=== PATIENT | female | born 1980 | race Caucasian/White ===

== ENCOUNTER → 2021-01-03 | Outpatient (CLI) | payer BC, OTHER ==
[~2021-01-03] MED LIST: LEXAPRO 10 MG T10 M2 PO; LOPRESSOR50 PO; NEXIUM20 MG PO; NORTRIPTYLINE H25 M3 PO; NURTEC ODT75 MG PO; SINGULAIR 10 MG10 M1 PO; SUMATRIPTAN SU100 MG PO
[2021-01-03 14:10] LABS: URINE BILIRUBIN NEGATIVE (Negative); URINE BLOOD TRACE (Negative); URINE CLARITY CLEAR; URINE COLOR YELLOW; URINE GLUCOSE-RANDOM* NEGATIVE (Negative); URINE KETONES NEGATIVE (Negative); URINE LEUKOCYTES-REFLEX NEGATIVE (Negative); URINE NITRITE-REFLEX NEGATIVE (Negative); URINE PROTEIN (DIPSTICK) NEGATIVE (Negative); URINE UROBILINOGEN 0.2 E.U./dl (0.2-1.0)
[2021-01-03 14:11] LABS: HEMATOCRIT 40.6 % (37.0-47.0); HEMOGLOBIN 13.9 gm/dL (12.0-15.0); MCHC 34.2 g/dL (28.0-37.0); MCV 87.7 fL (80.0-100.0); RBC 4.63 mil/uL (4.20-5.00); RDW 12.7 % (10.5-14.5); WBC 6.4 thou/uL (4.0-11.0)
[2021-01-03 14:21] LABS: CALCIUM 8.8 mg/dL (8.5-10.1); CREATININE 0.7 mg/dL (0.6-1.0)
[2021-01-03 14:24] LABS: INR 0.94; PROTIME 10.3 Seconds (10.5-12.1)
== END ==
LOC: PAC 12:51
PROVIDERS: ATTEND Orthopaedic Surgery
DX: Z01.812 Encounter for preprocedural laboratory examination (principal); M17.11 Unilateral primary osteoarthritis, right knee

== ENCOUNTER 2021-01-09 06:13 | Observation (INO) | payer BC, OTHER ==
[~2021-01-09] VITALS: Ht 162.6 cm; Wt 104.8 kg
[2021-01-09 07:06] VITALS: BP 103/70
--- NOTE | 2021-01-09 14:48 | NUR ---
ASSESSMENT: CM REVIEWED CHART AND MET WITH PATIENT AT THE [facility]. PT IS ALERT AND ORIENTED X4. PT LIVES IN A HOUSE WITH HER FAMILY. PT REPORTS SHE HAS ABOUT 2 STEPS WITH HANDRAILS TO ENTER THE HOME THROUGH THE GARAGE AND NO MORE STEPS SHE HAS TO USE ONCE INSIDE. PT REPORTS SHE HAS A CANE AND A WALKER AT HOME TO USE IF NEEDED. PT IS S/P RIGHT TKA. PT REPORTS SHE HAS OUTPATIENT THERAPY ARRANGED AT [facility] IN [place], [place] TO BEGIN ON SATURDAY. CM DISCUSSED ROLE. PT DOES NOT ANTICIPATE HAVING ANY NEEDS FROM CM. CM WILL CONTINUE TO FOLLOW TO ASSIST NEEDED.
[2021-01-09 18:12] VITALS: BP 106/68
--- NOTE | 2021-01-09 18:27 | NUR ---
ASSUMED CARE OF PT BROUGHT UP FROM PACU WITH RIGHT TOTAL KNEE REPLACEMENT.PT IS A/OX4 WITH C/O PAIN IN THE RIGHT CALF AND ANKLE. LUNGS ARE CLEAR IN ALL DE [place] TOR[place], ABD SOFT NONTENDER WITH ACTIVE BOWEL SOUNDS. CHOLO DRESSING ON RIGHT KNEE WITH DRAIN, THIGH HIGH MARJORIE BILAT AND POLAR PK WRAP ON RIGHT KNEE. ASSESSMENTS OTHERWISE UNREMARKABLE. VSS, DRESSING C/D/I, IV IN RIGHT FA WITH D51/2NS CALL LIGHT AND OTHER NEEDS ARE PLACED WITHIN REACH. MEDS AND TX GIVEN NEEDED AND SCHEDULED.
[2021-01-09 19:53] VITALS: BP 106/69
[2021-01-10 04:12] VITALS: BP 90/49
--- NOTE | 2021-01-10 04:13 | NUR ---
ASSESSMENT COMPLETED. KHTH IN PLACE. RIGHT KNEE WITH CHOLO DRSG AND POLAR ASIF IN PLACE. SCD TO LLE. SOME MILD EDEMA TO BOTH LEGS-ELEVATED ON PILLOWS. R FOOT WITH GOOD CSM. PT AFEBRILE. BEEN GETTING UP TO THE BSC. PT OBSERVED GETTING UP ALOT TO URINATE, SHE WAS GETTING TIRED OF IT BY MIDNOC AND WANTED TO SLEEP. SHE REQUESTED TO BE SL. PT IS DRINKING OK. U/O IS ADEQUATE SO FAR. PT ALSO C/O DISCOMFORT TO RFA IV SITE-FLUSHING WITH NO DIFFICULTIES.PT GIVEN PRN HYDROXYZINE TO HELP HER RELAX AND SLEEP. PAIN WELL MANAGED. SHE APPEARS COMFORTABLE-NO DISTRESS.CALL LIGHT WITHIN REACH.APPEARS TO BE SLEEPING.
[2021-01-10 09:02] VITALS: BP 100/53
--- NOTE | 2021-01-10 11:09 | NUR ---
Assumed care of pt at 0700. Pt a&ox4. Pain controlled with prn pain meds. Dressing c/d/i. RA. SCDs and MARJORIE hose in place. Polar care in place. Pt worked with physical therapy and is cleared to go home today. Awaiting discharge orders. Call light within reach. Will continue to monitor.
--- NOTE | 2021-01-10 11:36 | NUR ---
ON-GOING ASSESSMENT: CM REVIEWED CHART. PT IS DOING WELL WITH THERAPY AND IS TO DISCHARGE HOME TODAY AND WILL START OUTPATIENT THERAPY. PT REPORTS HAVING ALL NEEDED EQUIPMENT AT HOME. CASE CLOSED.
[2021-01-10] MEDS ORDERED: MS CONTIN15 MG PO (12:45)
[2021-01-10] MEDS ORDERED: BAYER CHEWABLE81 MG PO (12:45)
[2021-01-10 13:03] VITALS: BP 100/53
--- NOTE | 2021-01-11 14:47 | O ---
[facility] [place] [address] OPERATIVE REPORT Name: LALO SRIVASTAVA Room #: 438-P [facility] Bhargav Herrera.Amanda#: [id number] Admission: 01/09/21 Attend Phys: Stephen Park MD Discharge: 01/10/21 Date of : 84 Report #: [id number] THIS REPORT FOR: cc: Erik Joseph MD, Richard C. MD Abraham, Scott M. MD ~ DOC #: [id number] Stephen Park MD DATE OF SERVICE: 01/09/2021 PREOPERATIVE DIAGNOSIS: Right knee posttraumatic osteoarthritis. POSTOPERATIVE DIAGNOSIS: Right knee posttraumatic osteoarthritis. PROCEDURE: Right total knee arthroplasty using Navio robotic electrical assistant. SURGEON: Stephen Park MD. ANESTHESIA: LMA with adductor canal block. IMPLANTS: [employer] size 3 Oxinium Journey II BCS posterior stabilized femur, size 2 tibia, size 32 patella and a size 10 polyethylene. TOURNIQUET TIME: 54 minutes. ESTIMATED BLOOD LOSS: 25 mL. COMPLICATIONS: None. SPECIMENS: None. CONDITION UPON LEAVING THE OPERATING ROOM: Stable. INDICATIONS FOR PROCEDURE: The patient is a 40-year-old female who has had a previous right patellar fracture that was fixed with ORIF. She has gone on to develop posttraumatic osteoarthritis in the patellofemoral compartment as well as having osteoarthritis in her medial compartment. After discussion with her and failure of conservative measures, she elected for right total knee arthroplasty. DESCRIPTION OF PROCEDURE: Risks, benefits, alternatives, complications were discussed in detail with the patient including but not limited to risk of anesthesia, risk of damage to nerves, arteries, blood vessels, risk for infection, bleeding, risk for continued knee pain, need for reoperation. Informed consent was obtained from the patient and the right knee was appropriately marked in the preoperative holding area. IV clindamycin was given [address] [address] OPERATIVE REPORT Name: LALO SRIVASTAVA Room #: 438-P [facility] Bhargav Schuler#: [id number] Admission: 01/09/21 Attend Phys: Stephen Park MD Discharge: 01/10/21 Date of : 84 Report #: [id number] for preoperative antibiotics. Adductor canal block was placed by anesthesia. She was brought to the operating room and placed in supine position on the operating table. LMA anesthesia was induced without complication. Tourniquet was placed on the right thigh. Right lower extremity was prepped and draped in normal sterile fashion. Timeout was performed properly identifying the patient and procedure as well as the instrumentation and implants. All in the operating room in agreement. Right lower extremity was exsanguinated, tourniquet was inflated. Tourniquet time was 54 minutes. Standard midline approach to the knee was made with 10 blade through the skin. Dissection was taken down sharply to the fascia and deep flaps were developed medially and laterally. Fresh 10 blade was used to make a medial parapatellar arthrotomy and the knee was inspected. There was severe patellofemoral compartment osteoarthritis with moderate medial compartment osteoarthritis. ACL and PCL were removed sharply. Reference pins were placed in the femur and the tibia. The knee was digitally mapped using ShoutOut robotic system. Intraoperative plan was made. We sized the size 3 femur, size 2 tibia and a 10 spacer. After acceptance of the intraoperative plan, distal femoral cut was made with Navio bur. Distal femoral cutting block was pinned in place and chamfer cuts were made. Attention was turned to the tibia. Remainder of the menisci removed with Bovie cautery. Tibial resection guide was pinned in place using Navio for placement and tibial resection was made. Flexion and extension gaps were checked and found to have good balance in flexion and extension both medially and laterally. Tibia sized, found to be a size 2. Size 2 tibial trial was placed, pinned and punch. A size 3 femoral trial was placed, box cut was made. This was then trialed with a size 10 polyethylene. Size 10 polyethylene demonstrated good balance medially and laterally both manually as well as digitally throughout range of motion of the knee. A 9 mm of bone was resected from the posterior surface of the patella and a size 32 patellar trial button was placed, knee was taken through range of motion, found to be stable, found to have good patellar tracking. Trial components were removed. Bone ends were thoroughly irrigated with normal saline. A final size 2, tibia size 3 Journey II BCS Oxinium femur and a size 32 patella were cemented in place using standard cementation techniques. While the cement cured, the periarticular injection consisting of morphine, ropivacaine, epinephrine, Toradol was placed around the knee joint capsule. After the cement cured, tourniquet was deflated. Hemostasis was obtained with Bovie cautery. A final size 10 polyethylene was placed. A gram of vancomycin was placed deep in the joint. Fascia was closed with 0 Vicryl. Skin was closed with 2-0 Vicryl, skin staple and a CHOLO dressing was applied. The patient tolerated this procedure well and went to recovery room under care of anesthesia postoperatively. Stephen Park MD SMA/KDA [address] [address] OPERATIVE REPORT Name: LALO SRIVASTAVA Room #: 438-P [facility] Bhargav Schuler#: [id number] Admission: 01/09/21 Attend Phys: Stephen Park MD Discharge: 01/10/21 Date of : 84 Report #: [id number] <ELECTRONICALLY SIGNED> By: Stephen Park MD 01/11/21 1447 [id number] Stephen Park MD /nt
== END 2021-01-10 14:21 | disposition home or self-care (01) ==
LOC: OR → 4S 11:45 → OR 12:43 → 4S 01-10 14:21
PROVIDERS: ADMIT Orthopaedic Surgery; ATTEND Orthopaedic Surgery
DX: M17.11 Unilateral primary osteoarthritis, right knee (principal)
CPT/HCPCS: 50010; 50101; 50415; 50954; 51130; 51225; 51320; 51412; 52001; 52282; 53000; 53078; 53365; 56527; 56528; 57095; 57103; 57110; 57127; 57180; 62110; 62900; 64043; 65002; 70005

== ENCOUNTER 2021-03-27 17:29 | Emergency (ER) | payer BC, OTHER ==
[~2021-03-27] VITALS: Ht 162.6 cm; Wt 102.1 kg
[~2021-03-27 17:29] MED LIST changes: +BAYER CHEWABLE81 MG PO; +MS CONTIN15 MG PO
[2021-03-27] MEDS ORDERED: HYDROCODON-ACE1 EAC7 PO (19:33)
[2021-03-27 19:45] VITALS: BP 121/70
== END 2021-03-27 19:47 | disposition home or self-care (01) ==
LOC: ER 17:29
DX: S86.811A Strain of other muscle(s) and tendon(s) at lower leg level, right leg, initial encounter (principal); I10 Essential (primary) hypertension; F32.9 Major depressive disorder, single episode, unspecified; K21.9 Gastro-esophageal reflux disease without esophagitis; Z90.49 Acquired absence of other specified parts of digestive tract; Z90.89 Acquired absence of other organs; Z98.51 Tubal ligation status; Z79.899 Other long term (current) drug therapy; Z91.048 Other nonmedicinal substance allergy status; Z88.9 Allergy status to unspecified drugs, medicaments and biological substances; Z88.1 Allergy status to other antibiotic agents; X58.XXXA Exposure to other specified factors, initial encounter; Y93.I9 Activity, other involving external motion; Y92.89 Other specified places as the place of occurrence of the external cause; Y99.8 Other external cause status

== ENCOUNTER → 2021-06-05 | Outpatient (CLI) | payer BC, OTHER ==
[~2021-06-05] MED LIST changes: +HYDROCODON-ACE1 EAC7 PO
== END ==
LOC: SJCVCIMAG 10:20
PROVIDERS: ATTEND Internal Medicine Cardiovascular Disease
DX: I08.1 Rheumatic disorders of both mitral and tricuspid valves (principal); I31.3 Pericardial effusion (noninflammatory)

== ENCOUNTER → 2021-07-10 | Outpatient (CLI) | payer BC, OTHER | LOC: SJCVCIMAG 08:17 | PROVIDERS: ATTEND Internal Medicine Cardiovascular Disease | DX: I65.29 Occlusion and stenosis of unspecified carotid artery (principal) ==